=== PATIENT | male | born 1945 | race Caucasian/White ===

== ENCOUNTER 2020-08-18 16:40 | Inpatient (IN) | payer MEDICARE ==
[~2020-08-18] VITALS: Ht 170.2 cm; Wt 60.3 kg
--- NOTE | 2020-08-18 16:57 | NUR ---
PATIENT BIB [facility] WITH CHIEF C/O GENERALIZED WEAKNESS AND LOSS OF APPETITE X2 MONTHS. PER EMS SYMPTOMS HAVE GOTTEN WORSE IN THE LAST FEW DAYS. PER EMS PATIENT REPORTS DIARRHEA WELL AND CHRONIC SCABIES INFECTION. EMS REPORTS PATIENT WAS 88% ON RA AND 12-LEAD SHOWED BIGEMINY, PATIENT WAS PLACED ON 2 LPM NC AND SECOND 12-LEAD SHOWED NO BIGEMINY AND O2 SATURATION INCREASED TO 95%. PATIENT'S BLOOD SUGAR EN ROUTE WAS 329, PATIENT NON-COMLIANT WITH MEDICATIONS AND REPORTS METH USE, UNSURE OF LAST USE. NADN, VSS, SIDE RAILS UP X2, CALL LIGHT WITHIN REACH.
--- NOTE | 2020-08-18 17:07 | NUR ---
Report from Alaina GUNDERSON. Pt resting in bed, OTONIEL. Dr. Dumont at bedside to evaluate pt.
--- NOTE | 2020-08-18 17:24 | NUR ---
Report to Ruby GUNDERSON.
--- NOTE | 2020-08-18 17:34 | NUR ---
LAB AT BEDSIDE. XR COMPLETE. GAVE PT URINAL TO PROVIDE UA
[2020-08-18 17:46] LABS: BASOPHILS % (AUTO) 1 % (0-1); EOSINOPHILS % (AUTO) 1 % (1-7); LYMPHOCYTES % (AUTO) 10 % (22-44); MD NO; MEAN CORPUSCULAR HGB CONC 33.4 g/dL (33.2-36.2); MEAN PLATELET VOLUME 9.2 fL (7.4-10.4); MONOCYTES % (AUTO) 14 % (2-9); NEUTROPHILS % (AUTO) 73 % (42-75); PLATELET COUNT 105 x10^3/uL (130-400); RED BLOOD COUNT 4.02 x10^6/uL (4.38-5.82); RED CELL DISTRIBUTION WIDTH 14.1 % (9.4-14.8)
[2020-08-18 18:00] LABS: ALBUMIN 1.7 g/dL (3.4-5.0); ANION GAP 7 mmol/L (5-15); CALCIUM 7.5 mg/dL (8.5-10.1); CHLORIDE 103 mmol/L (98-107)
[2020-08-18 18:12] LABS: ALANINE AMINOTRANSFERASE 18 U/L (12-78); ALKALINE PHOSPHATASE 74 U/L (45-117); BILIRUBIN,TOTAL 1.1 mg/dL (0.2-1.0); CREATININE 1.23 mg/dL (0.7-1.3); FREE T4 (FREE THYROXINE) 1.62 ng/dL (0.76-1.46); TOTAL PROTEIN 6.1 g/dL (6.4-8.2); TROPONIN I 0.024 ng/mL (0.000-0.045)
--- NOTE | 2020-08-18 18:29 | NUR ---
swabbed for covid. meal tray ordered.
--- NOTE | 2020-08-18 18:57 | NUR ---
REPORT REEVIED FROM JUWAN GUNDERSON
[2020-08-18] MEDS ORDERED: CEFTRIAXONE PMX 1GM/50ML 50 ML IV ONE (19:00)
[2020-08-18] MEDS ORDERED: AZITHROMYCIN 500 MG in SODIUM CHLORIDE 0.9% 250 ML IV ONE (19:00)
[2020-08-18] MEDS ORDERED: SODIUM CHLORIDE 0.9% 1,000ML IVBOLUS ONE (19:00)
[2020-08-18] MEDS ORDERED: ONDANSETRON ODT 4 MG PO PRN (19:30)
[2020-08-18] MEDS ORDERED: DEXAMETHASONE 4 MG/ML, 5ML IVPush ONE (19:30)
[2020-08-18] MEDS ORDERED: BISACODYL 10 MG SUPP PR PRN (19:30)
[2020-08-18] MEDS ORDERED: POLYETHYLENE GLYCOL 17 GM PACKET PO PRN (19:30)
[2020-08-18 19:47] LABS: D-DIMER 4.5 ug/mlFEU (0.00-0.52); INTERNATIONAL NORMALIZED RATIO 1.17 (0.93-1.1); PROTHROMBIN TIME 12.4 Seconds (9.6-11.5)
--- NOTE | 2020-08-18 20:00 | NUR ---
PT REQUESTING SNACKS
[2020-08-18] MEDS ORDERED: DEXAMETHASONE 4 MG/ML, 1ML ONE (20:05)
[2020-08-18] MEDS ORDERED: HEPARIN 5,000 UNITS/ML, 1ML ONE (20:06)
[2020-08-18] MEDS ORDERED: CEFTRIAXONE PMX 1GM/50ML 50 ML ONE (20:06)
[2020-08-18] MEDS: HEPARIN 5,000 UNITS/ML, 1ML SQ SCH (20:14)
--- NOTE | 2020-08-18 20:38 | NUR ---
REPORT GIVEN TO DICK GUNDERSON
--- NOTE | 2020-08-18 20:43 | NUR ---
PT UNSURE OF HOME MEDS. [facility] AND TO [facility]
[2020-08-18] MEDS: SODIUM CHLORIDE 0.9% 1,000 ML IV SCH (22:30)
[2020-08-18] MEDS: NICOTINE 21 MG/24 HR PATCH.TD24 TD SCH (22:30)
[2020-08-18] MEDS: ASCORBIC ACID 500 MG TABLET PO SCH (22:32)
[2020-08-18 22:44] VITALS: BP 128/76
[2020-08-19 00:28] VITALS: BP 128/70
[2020-08-19] MEDS ORDERED: ALBUTEROL HFA 90 MCG/SPRAY INH PRN (02:30)
[2020-08-19] MEDS ORDERED: OMNIPAQUE 350 MG/ML, 100ML BOTTLE ONE (02:38)
[2020-08-19] MEDS: HEPARIN 5,000 UNITS/ML, 1ML SQ SCH ×2 (03:35→11:30)
[2020-08-19 05:42] LABS: BASOPHILS % (AUTO) 2 % (0-1); EOSINOPHILS % (AUTO) 0 % (1-7); LYMPHOCYTES % (AUTO) 18 % (22-44); MEAN CORPUSCULAR HEMOGLOBIN 30.2 pg (27.5-34.5); MEAN CORPUSCULAR HGB CONC 33.4 g/dL (33.2-36.2); MONOCYTES % (AUTO) 8 % (2-9); NEUTROPHILS % (AUTO) 73 % (42-75); PLATELET COUNT 82 x10^3/uL (130-400); RED BLOOD COUNT 3.82 x10^6/uL (4.38-5.82); RED CELL DISTRIBUTION WIDTH 13.8 % (9.4-14.8)
[2020-08-19 05:48] LABS: MD NO
[2020-08-19] MEDS ORDERED: DEXTROSE 50%, 50ML SYRINGE IVPush PRN (07:00)
[2020-08-19] MEDS ORDERED: LORazepam 2 MG/ML, 1ML IV PRN ×3 (07:00)
[2020-08-19] MEDS ORDERED: GLUCAGON 1 MG IM PRN (07:00)
[2020-08-19] MEDS ORDERED: DEXTROSE 4 GM TAB.CHEW PO PRN (07:00)
[2020-08-19] MEDS: INSULIN LISPRO 100 UNITS/ML, PEN SQ-INSULIN SCH ×4 (07:00→22:11)
[2020-08-19 08:20] VITALS: BP 124/63
[2020-08-19] MEDS: SODIUM CHLORIDE FLUSH 10ML SYR IVF SCH ×2 (09:00→21:12)
[2020-08-19] MEDS: SENNA/DOCUSATE TABLET PO SCH (09:00)
[2020-08-19] MEDS: NICOTINE 21 MG/24 HR PATCH.TD24 TD SCH (09:16)
[2020-08-19] MEDS: MULTIVITAMINS/MINERALS TABLET PO SCH (09:17)
[2020-08-19] MEDS: ASCORBIC ACID 500 MG TABLET PO SCH ×2 (09:17→21:11)
[2020-08-19] MEDS: ZINC SULFATE 220 MG CAPSULE PO SCH (09:17)
[2020-08-19] MEDS: CHOLECALCIFEROL 5,000u TAB PO SCH (09:17)
[2020-08-19] MEDS: SODIUM CHLORIDE 0.9% 1,000 ML IV SCH ×2 (11:37→22:13)
[2020-08-19 12:35] VITALS: BP 120/63
[2020-08-19] MEDS ORDERED: PERMETHRIN CRM 5%, 60GM TP ONE (15:00)
[2020-08-19] MEDS: ONDANSETRON 2MG/ML, 2ML IVPush PRN ×2 (17:52→22:15)
[2020-08-19 20:01] VITALS: BP 148/80
[2020-08-19] MEDS ORDERED: ALUMINUM/MAG/SIMETHICONE 30 ML UDC PO PRN (21:00)
[2020-08-19] MEDS ORDERED: INSULIN GLARGINE 100 UNITS/ML, PEN SQ-INSULIN SCH (21:00)
[2020-08-19] MEDS: DEXAMETHASONE 4 MG/ML, 1ML IVPush SCH (21:11)
[2020-08-19] MEDS: CEFTRIAXONE PMX 1GM/50ML 50 ML IV SCH (21:11)
[2020-08-19] MEDS: AZITHROMYCIN 500 MG in SODIUM CHLORIDE 0.9% 250 ML IV SCH (22:11)
[2020-08-20 00:33] VITALS: BP 131/75
[2020-08-20 03:56] LABS: MICROSCOPIC AUTO
[2020-08-20 06:37] VITALS: BP 122/60
[2020-08-20 08:28] LABS: BASOPHILS % (AUTO) 0 % (0-1); EOSINOPHILS % (AUTO) 0 % (1-7); LYMPHOCYTES % (AUTO) 8 % (22-44); MEAN CORPUSCULAR HEMOGLOBIN 30.2 pg (27.5-34.5); MEAN CORPUSCULAR HGB CONC 33.5 g/dL (33.2-36.2); MEAN PLATELET VOLUME 9.7 fL (7.4-10.4); MONOCYTES % (AUTO) 4 % (2-9); NEUTROPHILS % (AUTO) 88 % (42-75); PLATELET COUNT 124 x10^3/uL (130-400); RED BLOOD COUNT 3.93 x10^6/uL (4.38-5.82); RED CELL DISTRIBUTION WIDTH 13.8 % (9.4-14.8)
[2020-08-20 08:30] LABS: ALANINE AMINOTRANSFERASE 15 U/L (12-78); ALBUMIN 1.7 g/dL (3.4-5.0); CALCIUM 7.8 mg/dL (8.5-10.1); CREATININE 1.18 mg/dL (0.7-1.3)
[2020-08-20 08:33] LABS: ALKALINE PHOSPHATASE 67 U/L (45-117); BILIRUBIN,TOTAL 0.4 mg/dL (0.2-1.0); TOTAL PROTEIN 6.1 g/dL (6.4-8.2)
[2020-08-20 08:34] LABS: MD NO
[2020-08-20 08:35] LABS: ANION GAP 8 mmol/L (5-15); CHLORIDE 113 mmol/L (98-107)
[2020-08-20] MEDS: ZINC SULFATE 220 MG CAPSULE PO SCH (09:38)
[2020-08-20] MEDS: FAMOTIDINE 20 MG TABLET PO SCH ×2 (09:38→20:55)
[2020-08-20] MEDS: ASCORBIC ACID 500 MG TABLET PO SCH ×2 (09:38→20:53)
[2020-08-20] MEDS: MULTIVITAMINS/MINERALS TABLET PO SCH (09:38)
[2020-08-20] MEDS: CHOLECALCIFEROL 5,000u TAB PO SCH (09:38)
[2020-08-20] MEDS: DEXAMETHASONE 4 MG/ML, 1ML IVPush SCH (09:39)
[2020-08-20] MEDS: NICOTINE 21 MG/24 HR PATCH.TD24 TD SCH (09:39)
[2020-08-20] MEDS: SODIUM CHLORIDE FLUSH 10ML SYR IVF SCH ×2 (09:40→20:55)
[2020-08-20] MEDS: INSULIN LISPRO 100 UNITS/ML, PEN SQ-INSULIN SCH ×4 (09:42→23:39)
[2020-08-20] MEDS: SENNA/DOCUSATE TABLET PO SCH (09:42)
[2020-08-20] MEDS ORDERED: LORazepam 1MG TABLET ONE (09:59)
[2020-08-20] MEDS: LORazepam 2 MG/ML, 1ML IV PRN (10:09)
[2020-08-20 11:07] LABS: ACETONE, SERUM Negative (Negative)
[2020-08-20 11:29] VITALS: BP 106/61
[2020-08-20] MEDS: SODIUM CHLORIDE 0.9% 1,000 ML IV SCH ×2 (12:39→23:46)
[2020-08-20] MEDS: INSULIN LISPRO 100 UNIT/ML, 3ML VIAL SQ-INSULIN SCH ×2 (12:40→16:17)
[2020-08-20] MEDS ORDERED: INSULIN REGULAR 100 UNITS/ML, 3ML VIAL SQ-INSULIN ONE (15:00)
[2020-08-20 20:09] VITALS: BP 120/83
[2020-08-20] MEDS: CEFTRIAXONE PMX 1GM/50ML 50 ML IV SCH (20:49)
[2020-08-20] MEDS ORDERED: INSULIN GLARGINE 100 UNITS/ML, PEN SQ-INSULIN SCH ×2 (21:00)
[2020-08-20] MEDS: AZITHROMYCIN 500 MG in SODIUM CHLORIDE 0.9% 250 ML IV SCH (23:38)
[2020-08-21 00:35] VITALS: BP 140/72
[2020-08-21 05:23] LABS: BASOPHILS % (AUTO) 0 % (0-1); EOSINOPHILS % (AUTO) 0 % (1-7); LYMPHOCYTES % (AUTO) 9 % (22-44); MEAN CORPUSCULAR HEMOGLOBIN 30.7 pg (27.5-34.5); MEAN CORPUSCULAR HGB CONC 34.5 g/dL (33.2-36.2); MEAN PLATELET VOLUME 9.4 fL (7.4-10.4); MONOCYTES % (AUTO) 8 % (2-9); NEUTROPHILS % (AUTO) 84 % (42-75); PLATELET COUNT 112 x10^3/uL (130-400); RED BLOOD COUNT 3.27 x10^6/uL (4.38-5.82); RED CELL DISTRIBUTION WIDTH 13.9 % (9.4-14.8)
[2020-08-21 05:33] LABS: ANION GAP 7 mmol/L (5-15); CALCIUM 7.4 mg/dL (8.5-10.1); CHLORIDE 118 mmol/L (98-107); CREATININE 0.97 mg/dL (0.7-1.3)
[2020-08-21 05:35] LABS: MD NO
[2020-08-21] MEDS: LORazepam 2 MG/ML, 1ML IV PRN ×2 (06:39→16:24)
[2020-08-21] MEDS: INSULIN LISPRO 100 UNIT/ML, 3ML VIAL SQ-INSULIN SCH ×4 (07:00→20:26)
[2020-08-21 08:14] VITALS: BP 185/95
[2020-08-21] MEDS: INSULIN LISPRO 100 UNITS/ML, PEN SQ-INSULIN SCH ×4 (08:26→20:36)
[2020-08-21] MEDS ORDERED: INSULIN LISPRO 100 UNIT/ML, 3ML VIAL SQ-INSULIN SCH ×2 (08:30→11:00)
[2020-08-21] MEDS: ASCORBIC ACID 500 MG TABLET PO SCH ×2 (08:40→20:27)
[2020-08-21] MEDS: NICOTINE 21 MG/24 HR PATCH.TD24 TD SCH (08:40)
[2020-08-21] MEDS: ZINC SULFATE 220 MG CAPSULE PO SCH (08:40)
[2020-08-21] MEDS: CHOLECALCIFEROL 5,000u TAB PO SCH (08:41)
[2020-08-21] MEDS: FAMOTIDINE 20 MG TABLET PO SCH ×2 (08:41→20:27)
[2020-08-21] MEDS: MULTIVITAMINS/MINERALS TABLET PO SCH (08:41)
[2020-08-21] MEDS: DEXAMETHASONE 4 MG/ML, 1ML IVPush SCH (08:41)
[2020-08-21] MEDS: SENNA/DOCUSATE TABLET PO SCH (08:42)
[2020-08-21] MEDS: SODIUM CHLORIDE FLUSH 10ML SYR IVF SCH ×2 (08:42→20:26)
[2020-08-21] MEDS: HYDROCORTISONE 100 MG INJ. IVPush SCH ×2 (11:59→20:26)
[2020-08-21 12:32] VITALS: BP 177/87
[2020-08-21 19:26] VITALS: BP 166/93
[2020-08-21] MEDS: CEFTRIAXONE PMX 1GM/50ML 50 ML IV SCH (20:26)
[2020-08-21] MEDS: INSULIN GLARGINE 100 UNITS/ML, PEN SQ-INSULIN SCH (20:35)
[2020-08-22] VITALS (8 sets, daily range): BP systolic 158–202; BP diastolic 78–104
[2020-08-22] MEDS: AZITHROMYCIN 500 MG in SODIUM CHLORIDE 0.9% 250 ML IV SCH (00:24)
[2020-08-22] MEDS: LORazepam 2 MG/ML, 1ML IV PRN ×3 (00:39→22:57)
[2020-08-22] MEDS: LABETALOL 5MG/ML, 20ML IVPush PRN ×3 (01:47→22:19)
[2020-08-22] MEDS: HYDROCORTISONE 100 MG INJ. IVPush SCH (04:04)
[2020-08-22 06:14] LABS: BASOPHILS % (AUTO) 0 % (0-1); EOSINOPHILS % (AUTO) 0 % (1-7); LYMPHOCYTES % (AUTO) 8 % (22-44); MEAN CORPUSCULAR HGB CONC 32.8 g/dL (33.2-36.2); MEAN PLATELET VOLUME 8.6 fL (7.4-10.4); MONOCYTES % (AUTO) 5 % (2-9); NEUTROPHILS % (AUTO) 87 % (42-75); PLATELET COUNT 110 x10^3/uL (130-400); RED BLOOD COUNT 3.85 x10^6/uL (4.38-5.82); RED CELL DISTRIBUTION WIDTH 13.7 % (9.4-14.8)
[2020-08-22 06:19] LABS: MD NO
[2020-08-22 06:33] LABS: ANION GAP 7 mmol/L (5-15); CALCIUM 8.1 mg/dL (8.5-10.1); CHLORIDE 115 mmol/L (98-107)
[2020-08-22 06:35] LABS: CREATININE 1.19 mg/dL (0.7-1.3)
[2020-08-22] MEDS: ZINC SULFATE 220 MG CAPSULE PO SCH (08:32)
[2020-08-22] MEDS: FAMOTIDINE 20 MG TABLET PO SCH ×2 (08:32→20:45)
[2020-08-22] MEDS: ASCORBIC ACID 500 MG TABLET PO SCH ×2 (08:32→20:45)
[2020-08-22] MEDS: SENNA/DOCUSATE TABLET PO SCH (08:32)
[2020-08-22] MEDS: MULTIVITAMINS/MINERALS TABLET PO SCH (08:32)
[2020-08-22] MEDS: CHOLECALCIFEROL 5,000u TAB PO SCH (08:33)
[2020-08-22] MEDS: NICOTINE 21 MG/24 HR PATCH.TD24 TD SCH (08:33)
[2020-08-22] MEDS: INSULIN LISPRO 100 UNITS/ML, PEN SQ-INSULIN SCH ×4 (08:36→20:49)
[2020-08-22] MEDS: SODIUM CHLORIDE FLUSH 10ML SYR IVF SCH ×2 (08:36→20:45)
[2020-08-22] MEDS: INSULIN LISPRO 100 UNIT/ML, 3ML VIAL SQ-INSULIN SCH ×4 (08:36→21:06)
[2020-08-22] MEDS: ONDANSETRON 2MG/ML, 2ML IVPush PRN (08:57)
[2020-08-22] MEDS ORDERED: HALOPERIDOL 5 MG/ML ONE (10:44)
[2020-08-22] MEDS ORDERED: HALOPERIDOL 5 MG/ML IM PRN (11:00)
[2020-08-22] MEDS ORDERED: LABETALOL 5MG/ML, 20ML IVPush ONE (11:00)
[2020-08-22] MEDS: LACTATED RINGERS 1,000 ML IV SCH ×2 (12:26→20:09)
[2020-08-22] MEDS: HEPARIN 5,000 UNITS/ML, 1ML SQ SCH (18:18)
[2020-08-22] MEDS: CEFTRIAXONE PMX 1GM/50ML 50 ML IV SCH (20:08)
[2020-08-22] MEDS: QUETIAPINE 25MG TABLET PO SCH (20:46)
[2020-08-22] MEDS: INSULIN GLARGINE 100 UNITS/ML, PEN SQ-INSULIN SCH (20:49)
[2020-08-23] MEDS ORDERED: LORazepam 2 MG/ML, 1ML IM PRN (01:30)
[2020-08-23] MEDS: AZITHROMYCIN 500 MG in SODIUM CHLORIDE 0.9% 250 ML IV SCH ×2 (01:39→23:46)
[2020-08-23 01:47] VITALS: BP 167/86
[2020-08-23] MEDS: HEPARIN 5,000 UNITS/ML, 1ML SQ SCH ×3 (01:51→18:00)
[2020-08-23] MEDS: LORazepam 2 MG/ML, 1ML IV PRN ×3 (04:11→21:24)
[2020-08-23 04:49] LABS: BASOPHILS % (AUTO) 3 % (0-1); EOSINOPHILS % (AUTO) 1 % (1-7); LYMPHOCYTES % (AUTO) 16 % (22-44); MEAN CORPUSCULAR HEMOGLOBIN 30.3 pg (27.5-34.5); MEAN CORPUSCULAR HGB CONC 33.6 g/dL (33.2-36.2); MEAN PLATELET VOLUME 8.5 fL (7.4-10.4); MONOCYTES % (AUTO) 7 % (2-9); NEUTROPHILS % (AUTO) 72 % (42-75); PLATELET COUNT 102 x10^3/uL (130-400); RED BLOOD COUNT 3.63 x10^6/uL (4.38-5.82)
[2020-08-23 04:51] LABS: HCT (SEDRATE) 32.6 % (39.2-51.8)
[2020-08-23 05:00] LABS: MD NO
[2020-08-23 05:04] LABS: ALBUMIN 1.8 g/dL (3.4-5.0); CALCIUM 8.3 mg/dL (8.5-10.1); CHLORIDE 120 mmol/L (98-107)
[2020-08-23 05:10] LABS: ALANINE AMINOTRANSFERASE 32 U/L (12-78); ALKALINE PHOSPHATASE 75 U/L (45-117); ANION GAP 6 mmol/L (5-15); BILIRUBIN,TOTAL 0.4 mg/dL (0.2-1.0); C-REACTIVE PROTEIN, QUANT 0.76 mg/dL (0.02-0.49); CREATININE 1.07 mg/dL (0.7-1.3); TOTAL PROTEIN 5.9 g/dL (6.4-8.2)
[2020-08-23 07:14] VITALS: BP 198/110
[2020-08-23] MEDS: INSULIN LISPRO 100 UNIT/ML, 3ML VIAL SQ-INSULIN SCH ×4 (07:19→21:00)
[2020-08-23] MEDS: DEXAMETHASONE 4 MG/ML, 1ML IVPush SCH (07:20)
[2020-08-23] MEDS: INSULIN LISPRO 100 UNITS/ML, PEN SQ-INSULIN SCH ×4 (07:20→21:19)
[2020-08-23] MEDS: MULTIVITAMINS/MINERALS TABLET PO SCH (07:22)
[2020-08-23] MEDS: ZINC SULFATE 220 MG CAPSULE PO SCH (07:22)
[2020-08-23] MEDS: CHOLECALCIFEROL 5,000u TAB PO SCH (07:22)
[2020-08-23] MEDS: QUETIAPINE 25MG TABLET PO SCH ×2 (07:22→20:21)
[2020-08-23] MEDS: FAMOTIDINE 20 MG TABLET PO SCH ×2 (07:22→20:21)
[2020-08-23] MEDS: SODIUM CHLORIDE FLUSH 10ML SYR IVF SCH ×2 (07:22→20:21)
[2020-08-23] MEDS: SENNA/DOCUSATE TABLET PO SCH (07:23)
[2020-08-23] MEDS: ASCORBIC ACID 500 MG TABLET PO SCH ×2 (07:23→20:22)
[2020-08-23] MEDS: NICOTINE 21 MG/24 HR PATCH.TD24 TD SCH (07:23)
[2020-08-23] MEDS: LABETALOL 5MG/ML, 20ML IVPush PRN (07:30)
[2020-08-23] MEDS: LACTATED RINGERS 1,000 ML IV SCH (07:34)
[2020-08-23 08:22] VITALS: BP 126/76
[2020-08-23 12:12] VITALS: BP 190/96
[2020-08-23] MEDS: LISINOPRIL 10 MG TABLET PO SCH (13:38)
[2020-08-23] MEDS: AMLODIPINE 5 MG TABLET PO SCH (13:38)
[2020-08-23 15:31] VITALS: BP 153/82
[2020-08-23 20:10] VITALS: BP 168/92
[2020-08-23] MEDS: LACTULOSE 10 GM/15 ML UDC PO SCH (20:21)
[2020-08-23] MEDS: CEFTRIAXONE PMX 1GM/50ML 50 ML IV SCH (20:21)
[2020-08-23] MEDS: INSULIN GLARGINE 100 UNITS/ML, PEN SQ-INSULIN SCH (21:21)
[2020-08-24 01:29] VITALS: BP 165/81
[2020-08-24] MEDS: HEPARIN 5,000 UNITS/ML, 1ML SQ SCH ×3 (02:17→20:03)
[2020-08-24] MEDS: LORazepam 2 MG/ML, 1ML IV PRN ×2 (03:09→06:15)
[2020-08-24 05:54] LABS: HCT (SEDRATE) 34.9 % (39.2-51.8)
[2020-08-24 05:56] LABS: ALBUMIN 2.1 g/dL (3.4-5.0); ANION GAP 5 mmol/L (5-15); C-REACTIVE PROTEIN, QUANT 0.67 mg/dL (0.02-0.49); CHLORIDE 121 mmol/L (98-107)
[2020-08-24 06:01] LABS: ALANINE AMINOTRANSFERASE 35 U/L (12-78); ALKALINE PHOSPHATASE 72 U/L (45-117); BILIRUBIN,TOTAL 0.4 mg/dL (0.2-1.0); CREATININE 1.01 mg/dL (0.7-1.3)
[2020-08-24 06:05] LABS: BASOPHILS % (AUTO) 1 % (0-1); EOSINOPHILS % (AUTO) 1 % (1-7); LYMPHOCYTES % (AUTO) 14 % (22-44); MEAN CORPUSCULAR HEMOGLOBIN 30.3 pg (27.5-34.5); MEAN CORPUSCULAR HGB CONC 33.9 g/dL (33.2-36.2); MEAN PLATELET VOLUME 8.7 fL (7.4-10.4); MONOCYTES % (AUTO) 8 % (2-9); NEUTROPHILS % (AUTO) 75 % (42-75); PLATELET COUNT 124 x10^3/uL (130-400); RED BLOOD COUNT 3.86 x10^6/uL (4.38-5.82); RED CELL DISTRIBUTION WIDTH 14.2 % (9.4-14.8)
[2020-08-24 06:18] LABS: MD NO
[2020-08-24] MEDS: INSULIN LISPRO 100 UNIT/ML, 3ML VIAL SQ-INSULIN SCH (07:00)
[2020-08-24] MEDS: INSULIN LISPRO 100 UNITS/ML, PEN SQ-INSULIN SCH ×4 (07:00→21:57)
[2020-08-24] MEDS: LACTULOSE 10 GM/15 ML UDC PO SCH ×2 (08:18→22:01)
[2020-08-24] MEDS: CHOLECALCIFEROL 5,000u TAB PO SCH (08:18)
[2020-08-24] MEDS: LISINOPRIL 10 MG TABLET PO SCH (08:18)
[2020-08-24] MEDS: QUETIAPINE 25MG TABLET PO SCH ×2 (08:18→22:02)
[2020-08-24] MEDS: ZINC SULFATE 220 MG CAPSULE PO SCH (08:19)
[2020-08-24] MEDS: DEXAMETHASONE 4 MG/ML, 1ML IVPush SCH (08:19)
[2020-08-24] MEDS: ASCORBIC ACID 500 MG TABLET PO SCH ×2 (08:19→22:01)
[2020-08-24] MEDS: MULTIVITAMINS/MINERALS TABLET PO SCH (08:19)
[2020-08-24] MEDS: FAMOTIDINE 20 MG TABLET PO SCH ×2 (08:19→22:02)
[2020-08-24] MEDS: SENNA/DOCUSATE TABLET PO SCH (08:19)
[2020-08-24] MEDS: AMLODIPINE 5 MG TABLET PO SCH (08:19)
[2020-08-24] MEDS: SODIUM CHLORIDE FLUSH 10ML SYR IVF SCH ×2 (08:20→21:09)
[2020-08-24] MEDS: NICOTINE 21 MG/24 HR PATCH.TD24 TD SCH (08:20)
[2020-08-24 12:05] VITALS: BP 162/86
[2020-08-24] MEDS ORDERED: LORazepam 1MG TABLET PO PRN (13:30)
[2020-08-24] MEDS: LORazepam 2 MG/ML, 1ML IVPush PRN ×2 (16:57→20:53)
[2020-08-24] MEDS: CEFTRIAXONE PMX 1GM/50ML 50 ML IV SCH (20:06)
[2020-08-24 20:15] VITALS: BP 158/94
[2020-08-24] MEDS: INSULIN GLARGINE 100 UNITS/ML, PEN SQ-INSULIN SCH (22:25)
[2020-08-24] MEDS ORDERED: HALOPERIDOL 5 MG/ML IM ONE (23:30)
[2020-08-25 00:34] VITALS: BP 150/110
[2020-08-25] MEDS: AZITHROMYCIN 500 MG in SODIUM CHLORIDE 0.9% 250 ML IV SCH ×2 (01:21→23:55)
[2020-08-25] MEDS: HEPARIN 5,000 UNITS/ML, 1ML SQ SCH ×3 (03:32→19:46)
[2020-08-25 06:31] VITALS: BP 210/109
[2020-08-25] MEDS: INSULIN LISPRO 100 UNITS/ML, PEN SQ-INSULIN SCH ×4 (07:00→20:54)
[2020-08-25 07:39] VITALS: BP 162/85
[2020-08-25] MEDS: SENNA/DOCUSATE TABLET PO SCH (07:42)
[2020-08-25] MEDS: ASCORBIC ACID 500 MG TABLET PO SCH ×2 (07:42→20:49)
[2020-08-25] MEDS: LACTULOSE 10 GM/15 ML UDC PO SCH ×2 (07:42→20:50)
[2020-08-25] MEDS: DEXAMETHASONE 4 MG/ML, 1ML IVPush SCH (07:42)
[2020-08-25] MEDS: ZINC SULFATE 220 MG CAPSULE PO SCH (07:42)
[2020-08-25] MEDS: FAMOTIDINE 20 MG TABLET PO SCH ×2 (07:42→20:50)
[2020-08-25] MEDS: CHOLECALCIFEROL 5,000u TAB PO SCH (07:43)
[2020-08-25] MEDS: AMLODIPINE 5 MG TABLET PO SCH (07:43)
[2020-08-25] MEDS: QUETIAPINE 25MG TABLET PO SCH ×2 (07:43→20:49)
[2020-08-25] MEDS: MULTIVITAMINS/MINERALS TABLET PO SCH (07:44)
[2020-08-25] MEDS: LISINOPRIL 10 MG TABLET PO SCH (07:44)
[2020-08-25] MEDS: NICOTINE 21 MG/24 HR PATCH.TD24 TD SCH (07:45)
[2020-08-25] MEDS: SODIUM CHLORIDE FLUSH 10ML SYR IVF SCH ×2 (07:45→20:06)
[2020-08-25] MEDS: ACETAMINOPHEN 325 MG TABLET PO PRN ×2 (11:19→17:31)
[2020-08-25 13:07] VITALS: BP 157/92
[2020-08-25] MEDS ORDERED: LISINOPRIL 10 MG TABLET PO ONE (17:00)
[2020-08-25 19:36] VITALS: BP 171/92
[2020-08-25] MEDS: LABETALOL 5MG/ML, 20ML IVPush PRN (19:47)
[2020-08-25] MEDS: CEFTRIAXONE PMX 1GM/50ML 50 ML IV SCH (20:49)
[2020-08-25] MEDS: INSULIN GLARGINE 100 UNITS/ML, PEN SQ-INSULIN SCH (20:53)
[2020-08-25] MEDS ORDERED: hydrALAzine 20 MG/ML, 1ML IV ONE (23:30)
[2020-08-25 23:53] VITALS: BP 145/76
[2020-08-26 00:26] VITALS: BP 145/76
[2020-08-26 01:28] VITALS: BP 183/91
[2020-08-26 02:05] VITALS: BP 129/67
[2020-08-26] MEDS: HEPARIN 5,000 UNITS/ML, 1ML SQ SCH ×3 (04:00→20:25)
[2020-08-26 06:03] LABS: BASOPHILS % (AUTO) 0 % (0-1); EOSINOPHILS % (AUTO) 1 % (1-7); LYMPHOCYTES % (AUTO) 18 % (22-44); MEAN CORPUSCULAR HEMOGLOBIN 30.2 pg (27.5-34.5); MEAN CORPUSCULAR HGB CONC 33.3 g/dL (33.2-36.2); MEAN PLATELET VOLUME 8.9 fL (7.4-10.4); MONOCYTES % (AUTO) 7 % (2-9); NEUTROPHILS % (AUTO) 74 % (42-75); PLATELET COUNT 89 x10^3/uL (130-400); RED CELL DISTRIBUTION WIDTH 14.6 % (9.4-14.8)
[2020-08-26 06:07] LABS: CHLORIDE 112 mmol/L (98-107)
[2020-08-26 06:14] LABS: ALANINE AMINOTRANSFERASE 40 U/L (12-78); ALBUMIN 1.9 g/dL (3.4-5.0); ALKALINE PHOSPHATASE 79 U/L (45-117); ANION GAP 6 mmol/L (5-15); BILIRUBIN,TOTAL 0.4 mg/dL (0.2-1.0); C-REACTIVE PROTEIN, QUANT 0.51 mg/dL (0.02-0.49); CALCIUM 9.8 mg/dL (8.5-10.1); TOTAL PROTEIN 5.9 g/dL (6.4-8.2)
[2020-08-26 06:34] LABS: MD SCAN
[2020-08-26 06:59] LABS: HCT (SEDRATE) 35.4 % (39.2-51.8)
[2020-08-26 07:33] VITALS: BP_SYST 128; BP_SYST 154; BP_DIAS 67; BP_DIAS 82
[2020-08-26] MEDS: NICOTINE 21 MG/24 HR PATCH.TD24 TD SCH (07:46)
[2020-08-26] MEDS: DEXAMETHASONE 4 MG/ML, 1ML IVPush SCH (07:46)
[2020-08-26] MEDS: ZINC SULFATE 220 MG CAPSULE PO SCH (07:46)
[2020-08-26] MEDS: ASCORBIC ACID 500 MG TABLET PO SCH ×2 (07:47→20:25)
[2020-08-26] MEDS: FAMOTIDINE 20 MG TABLET PO SCH ×2 (07:47→20:26)
[2020-08-26] MEDS: AMLODIPINE 5 MG TABLET PO SCH (07:47)
[2020-08-26] MEDS: QUETIAPINE 25MG TABLET PO SCH ×2 (07:47→20:26)
[2020-08-26] MEDS: MULTIVITAMINS/MINERALS TABLET PO SCH (07:47)
[2020-08-26] MEDS: SODIUM CHLORIDE FLUSH 10ML SYR IVF SCH ×2 (07:48→20:27)
[2020-08-26] MEDS: CHOLECALCIFEROL 5,000u TAB PO SCH (07:48)
[2020-08-26] MEDS: LISINOPRIL 10 MG TABLET PO SCH (07:48)
[2020-08-26] MEDS: SENNA/DOCUSATE TABLET PO SCH (07:48)
[2020-08-26] MEDS: LACTULOSE 10 GM/15 ML UDC PO SCH ×2 (07:48→20:26)
[2020-08-26] MEDS: INSULIN LISPRO 100 UNITS/ML, PEN SQ-INSULIN SCH ×4 (07:49→20:45)
[2020-08-26 12:12] VITALS: BP 131/69
[2020-08-26] MEDS: CEFTRIAXONE PMX 1GM/50ML 50 ML IV SCH (20:25)
[2020-08-26 20:40] VITALS: BP 157/87
[2020-08-26] MEDS: INSULIN GLARGINE 100 UNITS/ML, PEN SQ-INSULIN SCH (20:46)
[2020-08-27] MEDS: AZITHROMYCIN 500 MG in SODIUM CHLORIDE 0.9% 250 ML IV SCH (00:42)
[2020-08-27 01:54] VITALS: BP 162/83
[2020-08-27] MEDS: HEPARIN 5,000 UNITS/ML, 1ML SQ SCH ×3 (05:04→20:22)
[2020-08-27 06:26] VITALS: BP 146/77
[2020-08-27] MEDS: DEXAMETHASONE 4 MG/ML, 1ML IVPush SCH (07:28)
[2020-08-27] MEDS: INSULIN LISPRO 100 UNITS/ML, PEN SQ-INSULIN SCH ×4 (07:28→20:32)
[2020-08-27] MEDS: CHOLECALCIFEROL 5,000u TAB PO SCH (07:30)
[2020-08-27] MEDS: LISINOPRIL 10 MG TABLET PO SCH (07:30)
[2020-08-27] MEDS: ZINC SULFATE 220 MG CAPSULE PO SCH (07:30)
[2020-08-27] MEDS: MULTIVITAMINS/MINERALS TABLET PO SCH (07:30)
[2020-08-27] MEDS: ASCORBIC ACID 500 MG TABLET PO SCH ×2 (07:31→20:21)
[2020-08-27] MEDS: FAMOTIDINE 20 MG TABLET PO SCH ×2 (07:31→20:21)
[2020-08-27] MEDS: LACTULOSE 10 GM/15 ML UDC PO SCH ×2 (07:31→20:20)
[2020-08-27] MEDS: AMLODIPINE 5 MG TABLET PO SCH (07:31)
[2020-08-27] MEDS: QUETIAPINE 25MG TABLET PO SCH ×2 (07:31→20:21)
[2020-08-27] MEDS: SODIUM CHLORIDE FLUSH 10ML SYR IVF SCH ×2 (07:32→20:22)
[2020-08-27] MEDS: SENNA/DOCUSATE TABLET PO SCH (07:33)
[2020-08-27] MEDS: NICOTINE 21 MG/24 HR PATCH.TD24 TD SCH (07:34)
[2020-08-27 12:06] VITALS: BP 130/74
[2020-08-27 19:24] VITALS: BP 180/95
[2020-08-27] MEDS: CEFTRIAXONE PMX 1GM/50ML 50 ML IV SCH (20:30)
[2020-08-27] MEDS: INSULIN GLARGINE 100 UNITS/ML, PEN SQ-INSULIN SCH (20:31)
[2020-08-28] MEDS: AZITHROMYCIN 500 MG in SODIUM CHLORIDE 0.9% 250 ML IV SCH (00:03)
[2020-08-28 00:35] VITALS: BP 154/82
[2020-08-28] MEDS: HEPARIN 5,000 UNITS/ML, 1ML SQ SCH (04:17)
[2020-08-28 06:16] LABS: BASOPHILS % (AUTO) 0 % (0-1); EOSINOPHILS % (AUTO) 1 % (1-7); LYMPHOCYTES % (AUTO) 16 % (22-44); MEAN CORPUSCULAR HEMOGLOBIN 30.9 pg (27.5-34.5); MEAN CORPUSCULAR HGB CONC 33.8 g/dL (33.2-36.2); MEAN PLATELET VOLUME 9.4 fL (7.4-10.4); MONOCYTES % (AUTO) 10 % (2-9); NEUTROPHILS % (AUTO) 74 % (42-75); PLATELET COUNT 62 x10^3/uL (130-400); RED BLOOD COUNT 3.37 x10^6/uL (4.38-5.82); RED CELL DISTRIBUTION WIDTH 14.9 % (9.4-14.8)
[2020-08-28 06:26] LABS: CHLORIDE 110 mmol/L (98-107)
[2020-08-28 06:30] LABS: ANION GAP 3 mmol/L (5-15); CALCIUM 8.5 mg/dL (8.5-10.1); CREATININE 0.95 mg/dL (0.7-1.3)
[2020-08-28 06:51] VITALS: BP 145/83
[2020-08-28 06:52] LABS: MD SCAN
[2020-08-28] MEDS: INSULIN LISPRO 100 UNITS/ML, PEN SQ-INSULIN SCH ×4 (08:32→20:43)
[2020-08-28] MEDS: LACTULOSE 10 GM/15 ML UDC PO SCH ×2 (08:33→20:40)
[2020-08-28] MEDS: DEXAMETHASONE 4 MG/ML, 1ML IVPush SCH (08:34)
[2020-08-28] MEDS: NICOTINE 21 MG/24 HR PATCH.TD24 TD SCH (08:36)
[2020-08-28] MEDS: SENNA/DOCUSATE TABLET PO SCH (08:37)
[2020-08-28] MEDS: CHOLECALCIFEROL 5,000u TAB PO SCH (08:38)
[2020-08-28] MEDS: LISINOPRIL 10 MG TABLET PO SCH (08:38)
[2020-08-28] MEDS: ASCORBIC ACID 500 MG TABLET PO SCH ×2 (08:38→20:39)
[2020-08-28] MEDS: QUETIAPINE 25MG TABLET PO SCH ×2 (08:39→20:39)
[2020-08-28] MEDS: ZINC SULFATE 220 MG CAPSULE PO SCH (08:39)
[2020-08-28] MEDS: AMLODIPINE 5 MG TABLET PO SCH (08:39)
[2020-08-28] MEDS: MULTIVITAMINS/MINERALS TABLET PO SCH (08:39)
[2020-08-28] MEDS: FAMOTIDINE 20 MG TABLET PO SCH ×2 (08:39→20:39)
[2020-08-28] MEDS: SODIUM CHLORIDE FLUSH 10ML SYR IVF SCH ×2 (08:40→20:40)
[2020-08-28] MEDS ORDERED: HEPARIN 5,000 UNITS/ML, 1ML SQ SCH (10:00)
[2020-08-28 12:01] VITALS: BP 154/83
[2020-08-28 20:19] VITALS: BP 163/97
[2020-08-28] MEDS ORDERED: INSULIN GLARGINE 100 UNITS/ML, PEN SQ-INSULIN SCH (21:00)
[2020-08-29 02:11] VITALS: BP 158/88
[2020-08-29 06:09] LABS: ANION GAP 3 mmol/L (5-15); CALCIUM 9.2 mg/dL (8.5-10.1); CHLORIDE 109 mmol/L (98-107); CREATININE 1.01 mg/dL (0.7-1.3)
[2020-08-29 06:15] LABS: BASOPHILS % (AUTO) 0 % (0-1); EOSINOPHILS % (AUTO) 0 % (1-7); LYMPHOCYTES % (AUTO) 13 % (22-44); MEAN CORPUSCULAR HEMOGLOBIN 30.4 pg (27.5-34.5); MEAN CORPUSCULAR HGB CONC 32.7 g/dL (33.2-36.2); MEAN PLATELET VOLUME 9.7 fL (7.4-10.4); MONOCYTES % (AUTO) 9 % (2-9); NEUTROPHILS % (AUTO) 78 % (42-75); PLATELET COUNT 58 x10^3/uL (130-400); RED BLOOD COUNT 3.65 x10^6/uL (4.38-5.82); RED CELL DISTRIBUTION WIDTH 15.2 % (9.4-14.8)
[2020-08-29 06:17] LABS: MD NO
[2020-08-29 06:33] VITALS: BP 152/91
[2020-08-29] MEDS: ASCORBIC ACID 500 MG TABLET PO SCH ×2 (08:55→20:31)
[2020-08-29] MEDS: ZINC SULFATE 220 MG CAPSULE PO SCH (08:55)
[2020-08-29] MEDS: AMLODIPINE 5 MG TABLET PO SCH (08:56)
[2020-08-29] MEDS: CHOLECALCIFEROL 5,000u TAB PO SCH (08:56)
[2020-08-29] MEDS: LISINOPRIL 10 MG TABLET PO SCH (08:56)
[2020-08-29] MEDS: FAMOTIDINE 20 MG TABLET PO SCH ×2 (08:56→20:29)
[2020-08-29] MEDS: NICOTINE 21 MG/24 HR PATCH.TD24 TD SCH (08:57)
[2020-08-29] MEDS: INSULIN LISPRO 100 UNITS/ML, PEN SQ-INSULIN SCH ×4 (08:58→20:32)
[2020-08-29] MEDS: SENNA/DOCUSATE TABLET PO SCH (08:59)
[2020-08-29] MEDS: LACTULOSE 10 GM/15 ML UDC PO SCH ×2 (09:00→20:29)
[2020-08-29] MEDS: MULTIVITAMINS/MINERALS TABLET PO SCH (09:00)
[2020-08-29] MEDS: DEXAMETHASONE 4 MG/ML, 1ML IVPush SCH (09:01)
[2020-08-29] MEDS: QUETIAPINE 25MG TABLET PO SCH ×2 (09:01→20:30)
[2020-08-29] MEDS: SODIUM CHLORIDE FLUSH 10ML SYR IVF SCH ×2 (09:02→20:29)
[2020-08-29] MEDS ORDERED: ATOR20TA86 PO/NG (11:27)
[2020-08-29] MEDS ORDERED: ALBU18HF IH (11:27)
[2020-08-29] MEDS ORDERED: ASPI-515 PO (11:27)
[2020-08-29] MEDS ORDERED: GLIM4TAB8 PO (11:27)
[2020-08-29] MEDS ORDERED: METF500T17 PO (11:27)
[2020-08-29] MEDS ORDERED: BENA1TAB10 PO (11:27)
[2020-08-29] MEDS ORDERED: EMPA25TA PO/NG (11:27)
[2020-08-29] MEDS ORDERED: FAMO10VI13 PO/NG (11:27)
[2020-08-29 12:56] VITALS: BP 122/68
[2020-08-29 18:30] VITALS: BP 126/74
[2020-08-29] MEDS ORDERED: INSULIN GLARGINE 100 UNITS/ML, PEN SQ-INSULIN SCH (21:00)
[2020-08-30 02:13] VITALS: BP 118/67
[2020-08-30 06:59] VITALS: BP 154/97
[2020-08-30 07:51] LABS: BASOPHILS % (AUTO) 0 % (0-1); EOSINOPHILS % (AUTO) 0 % (1-7); LYMPHOCYTES % (AUTO) 16 % (22-44); MEAN CORPUSCULAR HEMOGLOBIN 30.5 pg (27.5-34.5); MEAN CORPUSCULAR HGB CONC 32.6 g/dL (33.2-36.2); MEAN PLATELET VOLUME 10.1 fL (7.4-10.4); MONOCYTES % (AUTO) 6 % (2-9); NEUTROPHILS % (AUTO) 78 % (42-75); PLATELET COUNT 54 x10^3/uL (130-400); RED BLOOD COUNT 3.94 x10^6/uL (4.38-5.82); RED CELL DISTRIBUTION WIDTH 15.4 % (9.4-14.8)
[2020-08-30 08:01] LABS: ANION GAP 6 mmol/L (5-15); CALCIUM 9.4 mg/dL (8.5-10.1); CHLORIDE 110 mmol/L (98-107); CREATININE 1.23 mg/dL (0.7-1.3)
[2020-08-30 08:09] LABS: MD SCAN
[2020-08-30] MEDS: INSULIN LISPRO 100 UNITS/ML, PEN SQ-INSULIN SCH ×4 (08:26→20:34)
[2020-08-30] MEDS: QUETIAPINE 25MG TABLET PO SCH ×2 (08:27→20:13)
[2020-08-30] MEDS: ASCORBIC ACID 500 MG TABLET PO SCH ×2 (08:27→20:13)
[2020-08-30] MEDS: SODIUM CHLORIDE FLUSH 10ML SYR IVF SCH ×2 (08:27→20:14)
[2020-08-30] MEDS: ACETAMINOPHEN 325 MG TABLET PO PRN ×2 (08:27→20:33)
[2020-08-30] MEDS: CHOLECALCIFEROL 5,000u TAB PO SCH (08:28)
[2020-08-30] MEDS: NICOTINE 21 MG/24 HR PATCH.TD24 TD SCH (08:28)
[2020-08-30] MEDS: AMLODIPINE 5 MG TABLET PO SCH (08:28)
[2020-08-30] MEDS: LISINOPRIL 40 MG TABLET PO SCH (08:28)
[2020-08-30] MEDS: FAMOTIDINE 20 MG TABLET PO SCH ×2 (08:28→20:14)
[2020-08-30] MEDS: ZINC SULFATE 220 MG CAPSULE PO SCH (08:28)
[2020-08-30] MEDS: LACTULOSE 10 GM/15 ML UDC PO SCH ×2 (08:29→20:14)
[2020-08-30] MEDS: MULTIVITAMINS/MINERALS TABLET PO SCH (08:29)
[2020-08-30] MEDS: SENNA/DOCUSATE TABLET PO SCH (08:29)
[2020-08-30] MEDS ORDERED: HYDROCORTISONE CRM 1%, 30GM TP PRN (11:00)
[2020-08-30 12:54] VITALS: BP 129/87
[2020-08-30 18:44] VITALS: BP 109/76
[2020-08-30] MEDS: INSULIN GLARGINE 100 UNITS/ML, PEN SQ-INSULIN SCH (20:35)
[2020-08-31 00:41] VITALS: BP 119/79
[2020-08-31 06:33] VITALS: BP 116/71
[2020-08-31 06:35] LABS: ANION GAP 5 mmol/L (5-15); CALCIUM 9.2 mg/dL (8.5-10.1); CHLORIDE 111 mmol/L (98-107)
[2020-08-31 06:36] LABS: CREATININE 1.12 mg/dL (0.7-1.3)
[2020-08-31] MEDS: INSULIN LISPRO 100 UNITS/ML, PEN SQ-INSULIN SCH ×7 (07:40→21:30)
[2020-08-31 08:16] LABS: BASOPHILS % (AUTO) 1 % (0-1); EOSINOPHILS % (AUTO) 2 % (1-7); LYMPHOCYTES % (AUTO) 16 % (22-44); MEAN CORPUSCULAR HEMOGLOBIN 30.4 pg (27.5-34.5); MEAN CORPUSCULAR HGB CONC 32.5 g/dL (33.2-36.2); MEAN PLATELET VOLUME 9.7 fL (7.4-10.4); MONOCYTES % (AUTO) 8 % (2-9); NEUTROPHILS % (AUTO) 73 % (42-75); PLATELET COUNT 50 x10^3/uL (130-400); RED BLOOD COUNT 3.84 x10^6/uL (4.38-5.82); RED CELL DISTRIBUTION WIDTH 15.8 % (9.4-14.8)
[2020-08-31 08:19] LABS: MD NO
[2020-08-31] MEDS: SODIUM CHLORIDE FLUSH 10ML SYR IVF SCH ×2 (10:09→20:43)
[2020-08-31] MEDS: ASCORBIC ACID 500 MG TABLET PO SCH ×2 (10:11→20:42)
[2020-08-31] MEDS: AMLODIPINE 5 MG TABLET PO SCH (10:11)
[2020-08-31] MEDS: QUETIAPINE 25MG TABLET PO SCH ×2 (10:11→20:42)
[2020-08-31] MEDS: NICOTINE 21 MG/24 HR PATCH.TD24 TD SCH (10:11)
[2020-08-31] MEDS: MULTIVITAMINS/MINERALS TABLET PO SCH (10:11)
[2020-08-31] MEDS: ACETAMINOPHEN 325 MG TABLET PO PRN (10:11)
[2020-08-31] MEDS: CHOLECALCIFEROL 5,000u TAB PO SCH (10:11)
[2020-08-31] MEDS: LISINOPRIL 40 MG TABLET PO SCH (10:11)
[2020-08-31] MEDS: LACTULOSE 10 GM/15 ML UDC PO SCH ×2 (10:12→20:43)
[2020-08-31] MEDS: SENNA/DOCUSATE TABLET PO SCH (10:12)
[2020-08-31] MEDS: ZINC SULFATE 220 MG CAPSULE PO SCH (10:18)
[2020-08-31 11:32] VITALS: BP 122/64
[2020-08-31] MEDS: LIDODERM 5% PATCH TD SCH (11:53)
[2020-08-31 13:11] VITALS: BP 122/64
[2020-08-31 19:23] VITALS: BP 119/64
[2020-08-31] MEDS: FAMOTIDINE 20 MG TABLET PO SCH (20:43)
[2020-08-31] MEDS: INSULIN GLARGINE 100 UNITS/ML, PEN SQ-INSULIN SCH (21:30)
[2020-09-01 00:59] VITALS: BP 111/73
[2020-09-01] MEDS: ACETAMINOPHEN 325 MG TABLET PO PRN (04:31)
[2020-09-01] MEDS ORDERED: QUETIAPINE 25MG TABLET ONE (07:22)
[2020-09-01] MEDS: INSULIN LISPRO 100 UNITS/ML, PEN SQ-INSULIN SCH ×7 (07:30→20:58)
[2020-09-01] MEDS: AMLODIPINE 5 MG TABLET PO SCH (07:32)
[2020-09-01] MEDS: SODIUM CHLORIDE FLUSH 10ML SYR IVF SCH ×2 (07:32→21:00)
[2020-09-01] MEDS: LACTULOSE 10 GM/15 ML UDC PO SCH ×2 (07:32→21:00)
[2020-09-01] MEDS: LISINOPRIL 40 MG TABLET PO SCH (07:32)
[2020-09-01] MEDS: QUETIAPINE 25MG TABLET PO SCH ×2 (07:32→20:55)
[2020-09-01] MEDS: MULTIVITAMINS/MINERALS TABLET PO SCH (07:32)
[2020-09-01] MEDS: NICOTINE 21 MG/24 HR PATCH.TD24 TD SCH (07:32)
[2020-09-01] MEDS: SENNA/DOCUSATE TABLET PO SCH (07:33)
[2020-09-01 07:39] VITALS: BP 149/84
[2020-09-01 08:26] VITALS: BP 124/75
[2020-09-01] MEDS: LIDODERM 5% PATCH TD SCH (11:38)
[2020-09-01 12:33] VITALS: BP 128/66
[2020-09-01] MEDS: ALUMINUM/MAG/SIMETHICONE 30 ML UDC PO PRN (16:16)
[2020-09-01] MEDS: FAMOTIDINE 20 MG TABLET PO SCH (20:53)
[2020-09-01 21:00] VITALS: BP 120/80
[2020-09-01] MEDS: INSULIN GLARGINE 100 UNITS/ML, PEN SQ-INSULIN SCH (21:00)
[2020-09-02 02:03] VITALS: BP 119/68
[2020-09-02 06:01] LABS: BASOPHILS % (AUTO) 1 % (0-1); EOSINOPHILS % (AUTO) 2 % (1-7); LYMPHOCYTES % (AUTO) 12 % (22-44); MEAN CORPUSCULAR HGB CONC 33.6 g/dL (33.2-36.2); MEAN PLATELET VOLUME 9.5 fL (7.4-10.4); MONOCYTES % (AUTO) 10 % (2-9); NEUTROPHILS % (AUTO) 76 % (42-75); RED BLOOD COUNT 3.55 x10^6/uL (4.38-5.82); RED CELL DISTRIBUTION WIDTH 15.7 % (9.4-14.8)
[2020-09-02 06:39] LABS: PLATELET COUNT 40 x10^3/uL (130-400)
[2020-09-02 06:48] LABS: MD SCAN
[2020-09-02] MEDS: INSULIN LISPRO 100 UNITS/ML, PEN SQ-INSULIN SCH ×7 (07:00→20:29)
[2020-09-02 07:47] VITALS: BP 126/76
[2020-09-02] MEDS: LACTULOSE 10 GM/15 ML UDC PO SCH ×2 (09:00→20:24)
[2020-09-02] MEDS: AMLODIPINE 5 MG TABLET PO SCH (09:03)
[2020-09-02] MEDS: SENNA/DOCUSATE TABLET PO SCH (09:03)
[2020-09-02] MEDS: MULTIVITAMINS/MINERALS TABLET PO SCH (09:04)
[2020-09-02] MEDS: QUETIAPINE 25MG TABLET PO SCH ×2 (09:04→20:21)
[2020-09-02] MEDS: NICOTINE 21 MG/24 HR PATCH.TD24 TD SCH (09:04)
[2020-09-02] MEDS: LISINOPRIL 40 MG TABLET PO SCH (09:04)
[2020-09-02] MEDS: SODIUM CHLORIDE FLUSH 10ML SYR IVF SCH ×2 (09:05→20:20)
[2020-09-02] MEDS: LIDODERM 5% PATCH TD SCH (11:32)
[2020-09-02 13:15] VITALS: BP 114/74
[2020-09-02 18:42] VITALS: BP 149/69
[2020-09-02] MEDS: FAMOTIDINE 20 MG TABLET PO SCH (20:21)
[2020-09-02] MEDS: INSULIN GLARGINE 100 UNITS/ML, PEN SQ-INSULIN SCH (20:28)
[2020-09-02] MEDS: ACETAMINOPHEN 325 MG TABLET PO PRN (21:06)
[2020-09-03 01:09] VITALS: BP 138/78
[2020-09-03 06:07] LABS: BASOPHILS % (AUTO) 1 % (0-1); EOSINOPHILS % (AUTO) 2 % (1-7); LYMPHOCYTES % (AUTO) 13 % (22-44); MEAN CORPUSCULAR HEMOGLOBIN 31.3 pg (27.5-34.5); MEAN CORPUSCULAR HGB CONC 33.6 g/dL (33.2-36.2); MEAN PLATELET VOLUME 10.1 fL (7.4-10.4); MONOCYTES % (AUTO) 13 % (2-9); NEUTROPHILS % (AUTO) 72 % (42-75); RED BLOOD COUNT 3.21 x10^6/uL (4.38-5.82); RED CELL DISTRIBUTION WIDTH 16.4 % (9.4-14.8)
[2020-09-03 06:11] LABS: ANION GAP 4 mmol/L (5-15); CALCIUM 8.7 mg/dL (8.5-10.1); CHLORIDE 113 mmol/L (98-107)
[2020-09-03 06:19] VITALS: BP 156/73
[2020-09-03 06:23] LABS: PLATELET COUNT 34 x10^3/uL (130-400)
[2020-09-03 06:43] LABS: MD SCAN
[2020-09-03] MEDS: LACTULOSE 10 GM/15 ML UDC PO SCH ×2 (08:19→20:46)
[2020-09-03] MEDS: LISINOPRIL 40 MG TABLET PO SCH (08:27)
[2020-09-03] MEDS: MULTIVITAMINS/MINERALS TABLET PO SCH (08:28)
[2020-09-03] MEDS: AMLODIPINE 5 MG TABLET PO SCH (08:28)
[2020-09-03] MEDS: NICOTINE 21 MG/24 HR PATCH.TD24 TD SCH (08:28)
[2020-09-03] MEDS: QUETIAPINE 25MG TABLET PO SCH ×2 (08:28→20:45)
[2020-09-03] MEDS: INSULIN LISPRO 100 UNITS/ML, PEN SQ-INSULIN SCH ×7 (08:29→20:47)
[2020-09-03] MEDS: SENNA/DOCUSATE TABLET PO SCH (08:32)
[2020-09-03] MEDS: SODIUM CHLORIDE FLUSH 10ML SYR IVF SCH ×2 (08:33→20:46)
[2020-09-03] MEDS: LIDODERM 5% PATCH TD SCH (11:44)
[2020-09-03 11:46] VITALS: BP 149/81
[2020-09-03 20:19] VITALS: BP 154/87
[2020-09-03] MEDS: INSULIN GLARGINE 100 UNITS/ML, PEN SQ-INSULIN SCH (20:48)
[2020-09-03] MEDS: ACETAMINOPHEN 325 MG TABLET PO PRN (22:58)
[2020-09-04 02:50] VITALS: BP 148/81
[2020-09-04 05:46] VITALS: BP 148/81
[2020-09-04 06:19] LABS: BASOPHILS % (AUTO) 0 % (0-1); EOSINOPHILS % (AUTO) 3 % (1-7); LYMPHOCYTES % (AUTO) 18 % (22-44); MEAN CORPUSCULAR HEMOGLOBIN 31.4 pg (27.5-34.5); MEAN CORPUSCULAR HGB CONC 33.4 g/dL (33.2-36.2); MEAN PLATELET VOLUME 9.9 fL (7.4-10.4); MONOCYTES % (AUTO) 13 % (2-9); NEUTROPHILS % (AUTO) 66 % (42-75); RED BLOOD COUNT 3.28 x10^6/uL (4.38-5.82)
[2020-09-04 06:20] LABS: MD NO; PLATELET COUNT 37 x10^3/uL (130-400)
[2020-09-04] MEDS: INSULIN LISPRO 100 UNITS/ML, PEN SQ-INSULIN SCH ×7 (07:00→21:08)
[2020-09-04] MEDS: SODIUM CHLORIDE FLUSH 10ML SYR IVF SCH ×2 (09:00→21:07)
[2020-09-04] MEDS: SENNA/DOCUSATE TABLET PO SCH (09:00)
[2020-09-04] MEDS: LACTULOSE 10 GM/15 ML UDC PO SCH ×2 (09:00→21:09)
[2020-09-04] MEDS: AMLODIPINE 5 MG TABLET PO SCH (09:28)
[2020-09-04] MEDS: LISINOPRIL 40 MG TABLET PO SCH (09:28)
[2020-09-04] MEDS: MULTIVITAMINS/MINERALS TABLET PO SCH (09:28)
[2020-09-04] MEDS: QUETIAPINE 25MG TABLET PO SCH ×2 (09:28→21:07)
[2020-09-04] MEDS: NICOTINE 21 MG/24 HR PATCH.TD24 TD SCH (09:30)
[2020-09-04] MEDS: LIDODERM 5% PATCH TD SCH (11:49)
[2020-09-04] MEDS: ALUMINUM/MAG/SIMETHICONE 30 ML UDC PO PRN (17:44)
[2020-09-04 20:09] VITALS: BP 156/78
[2020-09-04] MEDS: INSULIN GLARGINE 100 UNITS/ML, PEN SQ-INSULIN SCH (21:08)
[2020-09-04] MEDS: ACETAMINOPHEN 325 MG TABLET PO PRN (23:14)
[2020-09-05 01:14] VITALS: BP 140/77
[2020-09-05] MEDS: INSULIN LISPRO 100 UNITS/ML, PEN SQ-INSULIN SCH ×6 (07:00→16:00)
[2020-09-05] MEDS ORDERED: LISI40TA PO (08:38)
[2020-09-05] MEDS ORDERED: AMLO-150 PO (08:38)
[2020-09-05] MEDS: LACTULOSE 10 GM/15 ML UDC PO SCH (09:00)
[2020-09-05] MEDS: SENNA/DOCUSATE TABLET PO SCH (09:00)
[2020-09-05] MEDS: QUETIAPINE 25MG TABLET PO SCH (09:02)
[2020-09-05] MEDS: SODIUM CHLORIDE FLUSH 10ML SYR IVF SCH (09:02)
[2020-09-05] MEDS: NICOTINE 21 MG/24 HR PATCH.TD24 TD SCH (09:03)
[2020-09-05] MEDS: LISINOPRIL 40 MG TABLET PO SCH (09:03)
[2020-09-05] MEDS: AMLODIPINE 5 MG TABLET PO SCH (09:03)
[2020-09-05] MEDS: MULTIVITAMINS/MINERALS TABLET PO SCH (09:03)
[2020-09-05] MEDS: LIDODERM 5% PATCH TD SCH (11:30)
[2020-09-05 12:10] VITALS: BP 135/72
== END 2020-09-05 18:20 | disposition home or self-care (01) | DRG 177 ==
LOC: ED 17:32 → EDIP 19:00 → 4WST 21:30
PROVIDERS: ADMIT Family Medicine; ATTEND Family Medicine
DX: U07.1 COVID-19 (principal); J96.01 Acute respiratory failure with hypoxia; J12.82 Pneumonia due to coronavirus disease 2019; E87.1 Hypo-osmolality and hyponatremia; J44.0 Chronic obstructive pulmonary disease with (acute) lower respiratory infection; J44.1 Chronic obstructive pulmonary disease with (acute) exacerbation; E87.2 Acidosis; G93.40 Encephalopathy, unspecified; F10.239 Alcohol dependence with withdrawal, unspecified; B86 Scabies; D64.9 Anemia, unspecified; D69.6 Thrombocytopenia, unspecified; E11.649 Type 2 diabetes mellitus with hypoglycemia without coma; F17.200 Nicotine dependence, unspecified, uncomplicated; E87.6 Hypokalemia; I11.9 Hypertensive heart disease without heart failure; K70.31 Alcoholic cirrhosis of liver with ascites; R62.7 Adult failure to thrive; F15.10 Other stimulant abuse, uncomplicated; F19.10 Other psychoactive substance abuse, uncomplicated; Z78.1 Physical restraint status; Z91.19 Patient's noncompliance with other medical treatment and regimen
CPT/HCPCS: 36415; 71045; 71275; 80048; 80053; 81001; 82010; 82140; 82728; 82947; 82962; 83036; 83605; 83615; 83690; 83735; 84145; 84439; 84443; 84484; 85025; 85379; 85384; 85610; 85651; 86140; 87040; 93005; 96374; 96375; 99285; 99406; G0378; J0456; J0696; J1100; J1644; J2405; Q0162; Q9967; J0360; J1630; J1720; J1815; J2060; J7030; J7050; J7120; U0003

== ENCOUNTER 2020-12-06 10:54 | Inpatient (IN) | payer MEDICARE ==
[~2020-12-06] VITALS: Ht 154.9 cm; Wt 64.8 kg
[~2020-12-06 10:54] MED LIST: ALBU18HF IH; AMLO-150 PO; APIX5TAB PO; ASPI-963 PO; ATOR20TA86 PO/NG; BENA1TAB10 PO; EMPA25TA PO/NG; FAMO10VI13 PO/NG; GLIM4TAB8 PO; LISI40TA9 PO; METF500T17 PO
[2020-12-06 11:56] LABS: BASOPHILS % (AUTO) 1 % (0-1); EOSINOPHILS % (AUTO) 2 % (1-7); LYMPHOCYTES % (AUTO) 16 % (22-44); MEAN CORPUSCULAR HEMOGLOBIN 30.7 pg (27.5-34.5); MEAN CORPUSCULAR HGB CONC 33.9 g/dL (33.2-36.2); MEAN PLATELET VOLUME 9.4 fL (7.4-10.4); MONOCYTES % (AUTO) 10 % (2-9); NEUTROPHILS % (AUTO) 71 % (42-75); PLATELET COUNT 79 x10^3/uL (130-400); RED BLOOD COUNT 4.61 x10^6/uL (4.38-5.82); RED CELL DISTRIBUTION WIDTH 15.1 % (9.4-14.8)
[2020-12-06 12:07] LABS: ALBUMIN 2.9 g/dL (3.4-5.0); ANION GAP 7 mmol/L (5-15); CHLORIDE 102 mmol/L (98-107); MD NO
[2020-12-06 12:09] LABS: CREATININE 1.47 mg/dL (0.7-1.3)
[2020-12-06 12:25] LABS: ACETONE, SERUM Trace (Negative)
--- NOTE | 2020-12-06 12:31 | NUR ---
CLINICAL ACCOUNT EXECUTIVE: PT TO ROOM FROM LOBBY VIA WHEELCHAIR
--- NOTE | 2020-12-06 13:03 | NUR ---
first contact with pt. pt c/o all over the body pain/generalized weakness. pt stated "i had the second covid vaccine on thu and i'm feeling weak now" pt's aox4. resps even and unlabored. bp/spo2 monitors in place. call light within reach. warm blanket given at this time.
[2020-12-06] MEDS ORDERED: SODIUM CHLORIDE FLUSH 10ML SYR IVF ONE (13:30)
[2020-12-06] MEDS ORDERED: SODIUM CHLORIDE 0.9% 1,000ML IVBOLUS ONE (13:30)
--- NOTE | 2020-12-06 13:45 | NUR ---
ns infusing at this time. pt tolerated well.
[2020-12-06 13:48] LABS: CREATINE KINASE, TOTAL 2470 U/L (39-308); TROPONIN I 0.067 ng/mL (0.000-0.045)
--- NOTE | 2020-12-06 13:51 | NUR ---
urinal given at this time
--- NOTE | 2020-12-06 13:56 | NUR ---
pt is not able to provide urine sample at this time. pt stated 'i can't pee"
[2020-12-06] MEDS ORDERED: MAGNESIUM SULFATE PMX 2GM/50ML 50 ML IV ONE ×2 (14:00→21:30)
[2020-12-06] MEDS ORDERED: ASPIRIN 81 MG TABLET CHEW PO ONE (14:00)
[2020-12-06] MEDS ORDERED: ASPIRIN 81 MG TABLET CHEW ONE (14:10)
--- NOTE | 2020-12-06 14:18 | NUR ---
pt medicated per emar. pt tolerated well.
--- NOTE | 2020-12-06 14:19 | NUR ---
this rn attempted to complete his med rec. pt is poor historian and pt stated "i don't remember all my home meds"
--- NOTE | 2020-12-06 14:24 | NUR ---
medication ordered from pharmacy at this time.
[2020-12-06] MEDS ORDERED: MAGNESIUM SULFATE PMX 2GM/50ML 50 ML ONE (14:35)
--- NOTE | 2020-12-06 14:43 | NUR ---
mag infusing at this time. pt tolerated well.
--- NOTE | 2020-12-06 15:55 | NUR ---
pt sleeping in [place]. resps even and unlabored. vss.
--- NOTE | 2020-12-06 16:10 | NUR ---
report given to esau orozco. all questions answered.
[2020-12-06 17:16] VITALS: BP 151/89
[2020-12-06 20:00] VITALS: BP 137/81
[2020-12-06] MEDS ORDERED: LORazepam 1MG TABLET PO PRN ×4 (21:30)
[2020-12-06] MEDS ORDERED: ALUMINUM/MAG/SIMETHICONE 30 ML UDC PO PRN (21:30)
[2020-12-06] MEDS ORDERED: DIPHENHYDRAMINE 50 MG CAPSULE PO PRN (21:30)
[2020-12-06] MEDS ORDERED: FOLIC ACID 1 MG TABLET PO ONE (21:30)
[2020-12-06] MEDS ORDERED: LORazepam 0.5MG TABLET PO PRN (21:30)
[2020-12-06] MEDS ORDERED: INSULIN LISPRO 100 UNITS/ML, PEN SQ-INSULIN SCH (21:30)
[2020-12-06] MEDS ORDERED: PHARMACY MAY ADJ FOR RENAL FX MC PRN (21:30)
[2020-12-06 21:40] LABS: TROPONIN I 0.036 ng/mL (0.000-0.045)
[2020-12-06] MEDS ORDERED: THIAMINE 100 MG in DEXTROSE 5% 50 ML IVPB SCH (22:00)
[2020-12-07] MEDS: THIAMINE 100MG TABLET PO SCH (00:40)
[2020-12-07 01:08] LABS: MICROSCOPIC AUTO
[2020-12-07 01:17] LABS: AMPHETAMINE SCREEN, URINE Negative (Negative); BARBITURATE SCREEN, URINE Negative (Negative); BENZODIAZEPINE SCREEN, URINE Negative (Negative); CANNABINOID SCREEN, URINE Negative (Negative); COCAINE SCREEN, URINE Negative (Negative); METHADONE SCREEN, URINE Negative (Negative); OPIATE SCREEN, URINE Negative (Negative)
[2020-12-07 01:45] VITALS: BP 106/64
[2020-12-07 03:18] LABS: MEAN CORPUSCULAR HEMOGLOBIN 30.3 pg (27.5-34.5); MEAN CORPUSCULAR HGB CONC 33.7 g/dL (33.2-36.2); MEAN PLATELET VOLUME 9.3 fL (7.4-10.4); PLATELET COUNT 59 x10^3/uL (130-400); RED BLOOD COUNT 3.93 x10^6/uL (4.38-5.82); RED CELL DISTRIBUTION WIDTH 15.4 % (9.4-14.8)
[2020-12-07 03:26] LABS: ANION GAP 6 mmol/L (5-15); CALCIUM 8.8 mg/dL (8.5-10.1); CHLORIDE 106 mmol/L (98-107); CREATININE 1.09 mg/dL (0.7-1.3)
[2020-12-07 03:31] LABS: TROPONIN I 0.028 ng/mL (0.000-0.045)
[2020-12-07 03:56] LABS: MD YES
[2020-12-07 03:59] LABS: <PLATELET ESTIMATE> DECREASED; ANISOCYTOSIS 1+; BAND#(MANUAL) 0.16 x10^3/uL; BANDS%(MANUAL) 3 % (0-7); BASOS#(MANUAL) 0.05 x10^3/uL (0-0.1); BASOS% (MANUAL) 1 % (0-1); EOS#(MANUAL) 0.21 x10^3/uL (0.0-0.4); EOS% (MANUAL) 4 % (1-7); LYMPHS% (MANUAL) 25 % (22-44); MONOS#(MANUAL) 0.36 x10^3/uL (0.3-2.7); MONOS% (MANUAL) 7 % (2-9); SEG#(MANUAL) 3.12 x10^3/uL (1.8-6.8); SEGS% (MANUAL) 60 % (42-75)
[2020-12-07 04:02] LABS: LARGE PLATELETS 1+
[2020-12-07 06:44] VITALS: BP 146/76
[2020-12-07] MEDS ORDERED: SODIUM CHLORIDE 0.9% 1,000 ML IV SCH (09:00)
[2020-12-07] MEDS: MAGNESIUM CHLORIDE 64 MG TABLET.DR PO SCH ×3 (09:00→22:12)
[2020-12-07] MEDS: APIXABAN 5 MG TABLET PO SCH ×2 (09:00→22:13)
[2020-12-07] MEDS: MULTIVITAMINS/MINERALS TABLET PO SCH (09:00)
[2020-12-07] MEDS: NICOTINE 21 MG/24 HR PATCH.TD24 TD SCH (09:46)
[2020-12-07] MEDS: INSULIN LISPRO 100 UNITS/ML, PEN SQ-INSULIN SCH ×3 (11:00→22:25)
[2020-12-07 13:00] VITALS: BP 144/88
[2020-12-07] MEDS ORDERED: SPIR25TA5 PO (14:48)
[2020-12-07] MEDS ORDERED: CETI10TA18 PO (14:48)
[2020-12-07] MEDS ORDERED: FURO20TA3 PO (14:48)
[2020-12-07] MEDS ORDERED: CARV6.25 PO (14:48)
[2020-12-07] MEDS ORDERED: NICO-587 TD (14:48)
[2020-12-07] MEDS ORDERED: ALBU2.5V11 NEB (14:48)
[2020-12-07] MEDS ORDERED: LACT10SO24 PO (14:48)
[2020-12-07] MEDS ORDERED: ALBUTEROL SULFATE 2.5MG/0.5ML NEB PRN (15:30)
[2020-12-07] MEDS: FAMOTIDINE 20 MG TABLET PO PRN (16:31)
[2020-12-07] MEDS: metFORMIN 850 MG TABLET PO SCH (16:32)
[2020-12-07] MEDS ORDERED: ONDANSETRON 2MG/ML, 2ML ONE (17:37)
[2020-12-07] MEDS: ONDANSETRON 2MG/ML, 2ML IVPush PRN (17:44)
[2020-12-07 20:00] VITALS: BP 135/78
[2020-12-07 22:11] VITALS: BP 134/80
[2020-12-07] MEDS: CARVEDILOL 6.25 MG TABLET PO SCH (22:13)
[2020-12-07] MEDS: SPIRONOLACTONE 25 MG TABLET PO SCH (22:39)
[2020-12-08] MEDS: THIAMINE 100MG TABLET PO SCH (00:51)
[2020-12-08 02:00] VITALS: BP 106/66
[2020-12-08 05:04] LABS: BASOPHILS % (AUTO) 1 % (0-1); EOSINOPHILS % (AUTO) 6 % (1-7); LYMPHOCYTES % (AUTO) 33 % (22-44); MEAN CORPUSCULAR HEMOGLOBIN 30.5 pg (27.5-34.5); MEAN CORPUSCULAR HGB CONC 33.3 g/dL (33.2-36.2); MEAN PLATELET VOLUME 9.4 fL (7.4-10.4); MONOCYTES % (AUTO) 12 % (2-9); NEUTROPHILS % (AUTO) 49 % (42-75); PLATELET COUNT 55 x10^3/uL (130-400); RED BLOOD COUNT 3.47 x10^6/uL (4.38-5.82); RED CELL DISTRIBUTION WIDTH 15.3 % (9.4-14.8)
[2020-12-08 05:14] LABS: ALANINE AMINOTRANSFERASE 24 U/L (12-78); ALBUMIN 2.1 g/dL (3.4-5.0); ANION GAP 4 mmol/L (5-15); CALCIUM 8.1 mg/dL (8.5-10.1); CHLORIDE 108 mmol/L (98-107)
[2020-12-08 05:16] LABS: MD NO
[2020-12-08 05:19] LABS: % IRON SATURATION 10 % (20-55); ALKALINE PHOSPHATASE 50 U/L (45-117); BILIRUBIN,TOTAL 0.5 mg/dL (0.2-1.0); CREATININE 1.15 mg/dL (0.7-1.3); IRON LEVEL 25 mcg/dL (65-175); TOTAL IRON BINDING CAPACITY 258 mcg/dL (250-450); TOTAL PROTEIN 5.7 g/dL (6.4-8.2)
[2020-12-08] MEDS: INSULIN LISPRO 100 UNITS/ML, PEN SQ-INSULIN SCH ×4 (08:33→21:33)
[2020-12-08 08:38] VITALS: BP 138/74
[2020-12-08] MEDS: CETIRIZINE 10 MG TABLET PO SCH (08:42)
[2020-12-08] MEDS: MULTIVITAMINS/MINERALS TABLET PO SCH (08:42)
[2020-12-08] MEDS: APIXABAN 5 MG TABLET PO SCH ×2 (08:42→21:08)
[2020-12-08] MEDS: LISINOPRIL 40 MG TABLET PO SCH (08:42)
[2020-12-08] MEDS: SPIRONOLACTONE 25 MG TABLET PO SCH (08:42)
[2020-12-08] MEDS: metFORMIN 850 MG TABLET PO SCH (08:42)
[2020-12-08] MEDS: MAGNESIUM CHLORIDE 64 MG TABLET.DR PO SCH ×3 (08:43→21:08)
[2020-12-08] MEDS: NICOTINE 21 MG/24 HR PATCH.TD24 TD SCH (08:43)
[2020-12-08] MEDS: CARVEDILOL 6.25 MG TABLET PO SCH ×2 (08:43→21:08)
[2020-12-08] MEDS ORDERED: FUROSEMIDE 20 MG TABLET PO SCH (09:00)
[2020-12-08] MEDS ORDERED: LACTULOSE 10 GM/15 ML UDC PO SCH (09:00)
[2020-12-08] MEDS ORDERED: SODIUM CHLORIDE 0.9% 1,000 ML IV SCH (09:00)
[2020-12-08] MEDS ORDERED: FERROUS SULFATE 325 MG TABLET PO SCH (09:00)
[2020-12-08 09:57] LABS: BASOPHILS % (AUTO) 1 % (0-1); EOSINOPHILS % (AUTO) 5 % (1-7); LYMPHOCYTES % (AUTO) 32 % (22-44); MEAN CORPUSCULAR HEMOGLOBIN 30.4 pg (27.5-34.5); MEAN CORPUSCULAR HGB CONC 33.4 g/dL (33.2-36.2); MEAN PLATELET VOLUME 9.3 fL (7.4-10.4); MONOCYTES % (AUTO) 9 % (2-9); NEUTROPHILS % (AUTO) 53 % (42-75); PLATELET COUNT 55 x10^3/uL (130-400); RED BLOOD COUNT 3.73 x10^6/uL (4.38-5.82); RED CELL DISTRIBUTION WIDTH 15.4 % (9.4-14.8)
[2020-12-08 09:59] LABS: MD NO
[2020-12-08] MEDS: ONDANSETRON 2MG/ML, 2ML IVPush PRN ×2 (10:48→21:08)
[2020-12-08 12:14] VITALS: BP 112/73
[2020-12-08 14:03] VITALS: BP 129/74
[2020-12-08] MEDS: FAMOTIDINE 20 MG TABLET PO PRN (14:56)
[2020-12-08] MEDS ORDERED: metFORMIN 500 MG TABLET ONE (16:15)
[2020-12-08] MEDS ORDERED: metFORMIN 850 MG TABLET PO SCH (17:00)
[2020-12-08 19:23] VITALS: BP 148/68
[2020-12-09 00:16] VITALS: BP 131/69
[2020-12-09 06:14] VITALS: BP 150/76
[2020-12-09] MEDS ORDERED: metFORMIN 500 MG TABLET PO SCH (08:00)
[2020-12-09] MEDS: INSULIN LISPRO 100 UNITS/ML, PEN SQ-INSULIN SCH ×2 (08:57→11:25)
[2020-12-09] MEDS ORDERED: LACTOBACILLUS CHEW TABLET PO SCH (09:00)
[2020-12-09] MEDS: MULTIVITAMINS/MINERALS TABLET PO SCH (09:01)
[2020-12-09] MEDS: APIXABAN 5 MG TABLET PO SCH (09:01)
[2020-12-09] MEDS: THIAMINE 100MG TABLET PO SCH (09:01)
[2020-12-09] MEDS: CETIRIZINE 10 MG TABLET PO SCH (09:02)
[2020-12-09] MEDS: CARVEDILOL 6.25 MG TABLET PO SCH (09:02)
[2020-12-09] MEDS: LISINOPRIL 40 MG TABLET PO SCH (09:02)
[2020-12-09] MEDS: NICOTINE 21 MG/24 HR PATCH.TD24 TD SCH (09:02)
[2020-12-09] MEDS ORDERED: INSU100I13 SQ (10:58)
[2020-12-09] MEDS ORDERED: INSU100I11 SQ-INSULIN (10:58)
[2020-12-09] MEDS ORDERED: FERR-36 PO (10:58)
[2020-12-09] MEDS ORDERED: ACID1TAB7 PO (10:58)
[2020-12-09 13:17] VITALS: BP 162/80
== END 2020-12-09 16:00 | disposition home health service (06) | DRG 682 ==
LOC: ED 14:24 → 5SO 15:35 → DCLOUNGE 12-09 15:44
PROVIDERS: ADMIT Hospitalist; ATTEND Internal Medicine
DX: N17.9 Acute kidney failure, unspecified (principal); I21.A1 Myocardial infarction type 2; M62.82 Rhabdomyolysis; E83.42 Hypomagnesemia; D69.59 Other secondary thrombocytopenia; D50.9 Iron deficiency anemia, unspecified; E83.51 Hypocalcemia; F17.200 Nicotine dependence, unspecified, uncomplicated; F15.10 Other stimulant abuse, uncomplicated; R26.2 Difficulty in walking, not elsewhere classified; F10.20 Alcohol dependence, uncomplicated; F19.10 Other psychoactive substance abuse, uncomplicated; E11.9 Type 2 diabetes mellitus without complications; S80.212A Abrasion, left knee, initial encounter; S80.211A Abrasion, right knee, initial encounter; X58.XXXA Exposure to other specified factors, initial encounter; I10 Essential (primary) hypertension; J44.9 Chronic obstructive pulmonary disease, unspecified; Z71.6 Tobacco abuse counseling; Z59.0 Homelessness; Z86.16 Personal history of COVID-19; Z87.01 Personal history of pneumonia (recurrent); Z86.718 Personal history of other venous thrombosis and embolism; Y93.89 Activity, other specified; Y92.89 Other specified places as the place of occurrence of the external cause; Y99.8 Other external cause status; Z71.51 Drug abuse counseling and surveillance of drug abuser
CPT/HCPCS: 36415; 71045; 80048; 80053; 80307; 80320; 81001; 82010; 82040; 82330; 82550; 82800; 82962; 83036; 83540; 83550; 83735; 84443; 84484; 85025; 93005; 96374; 99291; G0378; J2405; G0480; J1815; J3475; J7030

== ENCOUNTER 2021-01-05 07:01 | Emergency (ER) | payer MEDICARE ==
[~2021-01-05] VITALS: Ht 172.7 cm; Wt 48.0 kg
[~2021-01-05 07:01] MED LIST changes: +ACID1TAB7 PO; +ALBU2.5V11 NEB; +CARV6.25 PO; +CETI10TA18 PO; +FERR-36 PO; +FURO20TA3 PO; +INSU100I11 SQ-INSULIN; +INSU100I13 SQ; +LACT10SO24 PO; +NICO-587 TD; +SPIR25TA5 PO
--- NOTE | 2021-01-05 07:02 | NUR ---
Pt initially sitting in chair in hallway during EMS report, able to ambulate to room without gait disturbance present. PA and RN at bedside for assessment. Pt refuses to change into gown. Pt states last drink was approximately 15-30 minutes ago.
[2021-01-05] MEDS ORDERED: SODIUM CHLORIDE 0.9% 1,000ML IVBOLUS ONE (07:30)
[2021-01-05] MEDS ORDERED: THIAMINE 100 MG in SODIUM CHLORIDE 0.9% 50 ML IVPB ONE (07:30)
[2021-01-05 07:35] LABS: BASOPHILS % (AUTO) 1 % (0-1); EOSINOPHILS % (AUTO) 3 % (1-7); LYMPHOCYTES % (AUTO) 42 % (22-44); MEAN CORPUSCULAR HEMOGLOBIN 31.6 pg (27.5-34.5); MEAN CORPUSCULAR HGB CONC 33.3 g/dL (33.2-36.2); MEAN PLATELET VOLUME 8.3 fL (7.4-10.4); MONOCYTES % (AUTO) 7 % (2-9); NEUTROPHILS % (AUTO) 47 % (42-75); PLATELET COUNT 103 x10^3/uL (130-400); RED BLOOD COUNT 3.88 x10^6/uL (4.38-5.82); RED CELL DISTRIBUTION WIDTH 17.5 % (9.4-14.8)
[2021-01-05 07:41] LABS: MD NO
--- NOTE | 2021-01-05 07:47 | NUR ---
IV started and pt started with NS bolus and IV medication as ordered. Pt sleeping on R side and awakens easily.
[2021-01-05 07:49] LABS: ALANINE AMINOTRANSFERASE 22 U/L (12-78); ALBUMIN 3.1 g/dL (3.4-5.0); ANION GAP 7 mmol/L (5-15); CALCIUM 8.4 mg/dL (8.5-10.1); CHLORIDE 112 mmol/L (98-107); CREATININE 1.33 mg/dL (0.7-1.3)
[2021-01-05 07:51] LABS: ALKALINE PHOSPHATASE 49 U/L (45-117); BILIRUBIN,TOTAL 0.5 mg/dL (0.2-1.0); TOTAL PROTEIN 7.5 g/dL (6.4-8.2)
--- NOTE | 2021-01-05 08:37 | NUR ---
Pt continues to sleep on R side in bed with no acute distress noted. Thiamine gtt completed with approximately 700mL of 1 liter bolus of NS infused and running well.
--- NOTE | 2021-01-05 10:06 | NUR ---
Pt continues to sleep with IVF completed and VS reassessed. Pt to be d/c'd once he is more awake and able to go.
--- NOTE | 2021-01-05 10:58 | NUR ---
IV site d/c'd in attempt to see how much pt would awaken in order to determine if d/c to home is acceptable yet. Pt barely awakened and IV site with hemostasis within expected timeframe. Site covered with 2x2 gauze dsg.
--- NOTE | 2021-01-05 11:40 | NUR ---
Pt yelling out for food. Pt notified of d/c orders and that to-go sandwich and bottle of water can be provided. Pt argumentative stating he "has not eaten in days" and reiterated that a to-go sandwich and bottle of water would be provided.
--- NOTE | 2021-01-05 11:45 | NUR ---
Pt up from bed and ambulated to restroom with what sounded like a large uop noted from hallway while pt was in restroom. All belongings including PBJ sandwich and bottle of water with bus pass handed to pt at restroom door with direction to go to d/c desk. Pt stating he cannot walk and argumentative and physically aggressive towards this RN when reminded that he walked well from room to restroom just now. Security called by d/c desk and pt now being escorted out of dept.
[2021-01-05 11:59] VITALS: BP 153/89
== END 2021-01-05 12:01 | disposition home or self-care (01) ==
LOC: ED 09:19
DX: F10.220 Alcohol dependence with intoxication, uncomplicated (principal); I10 Essential (primary) hypertension; E11.9 Type 2 diabetes mellitus without complications; Z86.718 Personal history of other venous thrombosis and embolism; Y90.0 Blood alcohol level of less than 20 mg/100 ml
CPT/HCPCS: 36415; 80053; 80320; 83690; 85025; 96365; 99284; J3411; J7030; G0480

== ENCOUNTER 2021-02-13 14:58 | Emergency (ER) | payer MEDICARE ==
[~2021-02-13] VITALS: Ht 170.2 cm; Wt 63.6 kg
[~2021-02-13 14:58] MED LIST changes: +HYDR-3343 PO; +LISI-170 PO; +METO50TA82 PO; +PANT40TA6 PO; +SPIR25TA PO
--- NOTE | 2021-02-13 15:12 | NUR ---
BIB EMS FOR C/O SCABIES. STATES IT'S BEEN 2.5 WEEKS. PT WAS ADMITTED FOR GIB 2 WEEKS AGO AND WAS D/C'D YESTERDAY AND IS HERE TODAY FOR SCABIES TX THAT HE STATES HE DID NOT RECEIVE WHILE ADMITTED. VS VENEER GLUER HR 88, BP 131/72, 97% RA, BS 428 PT STATES HE IS INSULIN DEPENDENT AND HAS BEEN NONCOMPLAINT W/ INSULIN. PT RESTING ON GURNEY. NADN. MONITORS APPLIED. VSS. WARM BLANKET [ROVIDED. CALL LIGHT IN REACH.
--- NOTE | 2021-02-13 16:02 | NUR ---
ERP DR. WILLIS AT BEDSIDE FOR EVAL.
[2021-02-13 16:16] VITALS: BP 150/85
--- NOTE | 2021-02-13 16:16 | NUR ---
PT RESTING ON GURNEY. NADN. DIEGO.
--- NOTE | 2021-02-13 17:07 | NUR ---
PHARMACY NOTIFIED OF NEED FOR CREAM.
[2021-02-13] MEDS ORDERED: PIMECROLIMUS 1% TP ONE (17:30)
--- NOTE | 2021-02-13 17:54 | NUR ---
SPOKE TO PHARMACIST WHO STATES THEY DO NOT HAVE THE CREAM IN STOCK AND IT WOULD NEED TO BE ORDERED AND RECEIVED BY TOMORROW MORNING. PHARMACY STATES THERE IS NOTHING THEY CAN DO. SPOKE W/ ERP DR. WILLIS WHO WROTE RX PRESCRIPTION FOR CREAM. PT PROVIDED W/ RX AND MEDICATION ASSISTANCE SHEET.
== END 2021-02-13 17:56 | disposition home or self-care (01) ==
LOC: ED 17:11
DX: B86 Scabies (principal); I10 Essential (primary) hypertension; E11.9 Type 2 diabetes mellitus without complications; F17.200 Nicotine dependence, unspecified, uncomplicated; Z86.718 Personal history of other venous thrombosis and embolism
CPT/HCPCS: 99283